=== PATIENT | male | born 1995 | race Caucasian/White ===

== ENCOUNTER 2016-08-16 23:21 | Emergency (ER) | payer OTHER ==
[2016-08-16] MEDS ORDERED: Lidocaine 1% with EPINEPHrine 1:100,000 20 ML MDV ONE (23:32)
[2016-08-16] MEDS ORDERED: Bacitracin/Neomycin/Polymyxin B Oint 0.9 GM U/D Packet ONE (23:55)
--- NOTE | 2016-08-17 00:17 | EDM.PDOC ---
ED HPI Skin/Rash - General Chief Complaint: Laceration Stated Complaint: laceratiohn Time Seen by Provider: 08/16/16 23:35 Source: Reports: Patient History Limitations: Reports: No limitations - History of Present Illness INITIAL COMMENTS - FREE TEXT/NARRATIVE: Jacobo is a 21 yo male who presents to the ER with concerns of a cut to his right hand. States he was working at [employer]. States he was doing the dishes and when he put his hand into the water there was a sharp knife the cut the palm oh his right hand. States he has full movement of his hand. Denies any neuro or sensory deficits. States Tetanus is up to date, last given 1 year ago. 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) - Related Data Allergies Allergy/AdvReac Type Severity Reaction Status Date / Time cephalexin [From Keflex] Allergy Hives Verified 08/16/16 23:27 codeine Allergy Itching Verified 08/16/16 23:26 Home Meds: Ambulatory Orders Medication Instructions Recorded Confirmed Escitalopram [Lexapro] 10 mg PO DAILY 08/16/16 08/16/16 Past Medical History Psychiatric History: Reports: ADHD, Anxiety, Depression - Past Surgical History HEENT Surgical History: Reports: Eye surgery Social & Family History - Tobacco Use Smoking Status *Q: Current Some Day Smoker Years of Tobacco use: 2 Packs/Tins Daily: 0.1 - Caffeine Use Caffeine Use: Reports: None - Recreational Drug Use Recreational Drug Use: No ED ROS GENERAL - Review of Systems Review Of Systems: See Below Skin: Reports: wound (cut to right hand) ED EXAM, SKIN/RASH Exam: See Below Exam Limited By: No limitations General Appearance: alert, no apparent distress Extremities: normal range of motion (in all distal digits), normal capillary refill Neurological: alert, oriented, no motor/sensory deficits Skin: Warm, Dry, Intact, Wound/incision (5cm fairly superficial flap laceration to the palm, base of right hand. Mild bleeding noted) Location, Skin: upper extremity, right Characteristics: linear Associated features: No: warmth, tenderness ED SKIN PROCEDURES - Laceration/Wound Repair Right Proximal Dorsal Hand Lac/wound length in cm: 5 Appearance: subcutaneous, linear, clean Distal NVT: neuro & vascular intact, no tendon injury Anesthetic type: local Local anesthesia - Lidocaine (Xylocaine): 1% with epi Local anesthetic volume: 5cc Skin prep: chlorhexidine (hibiciens) Exploration/Debridement/Repair: wound explored, explored to base, no foreign material found Closed with: sutures Suture size: 4-0 # of sutures: 9 Suture type: prolene, interrupted, simple Sterile dressing applied: nurse Tetanus status addressed: Yes Complications: No Course - Vital Signs Last Recorded V/S: Last Vital Signs Temp 98.1 F 08/16/16 23:21 Pulse 77 08/16/16 23:21 Resp 18 08/16/16 23:21 BP Pulse Ox 96 08/16/16 23:21 - Orders/Labs/Meds Meds: Medications Discontinued Medications Generic Name Dose Route Start Last Admin Trade Name Jelena PRN Reason Stop Dose Admin Lidocaine/Epinephrine Confirm 08/16/16 23:32 Xylocaine 1% With Epinephrine 1:100,000 Administered 08/16/16 23:33 Dose 20 ml .ROUTE .STK-MED ONE Neomycin/Polymyxin/Bacitracin Confirm 08/16/16 23:55 Triple Antibiotic Oint Administered 08/16/16 23:56 Dose 1 each .ROUTE .STK-MED ONE Departure - Departure Time of Disposition: 00:20 Disposition: Home, Self-Care 01 Clinical Impression: Laceration of right hand without complication, excluding fingers Qualifiers: Encounter type: initial encounter Qualified Code(s): S61.411A - Laceration without foreign body of right hand, initial encounter Instructions: Stitches, Paras, or Adhesive Wound Closure, [id number], Laceration Care, Adult, [id number] Forms: ED Department Discharge Additional Instructions: 1) Laceration care handout attached. 2) Watch for signs of infection ( increased redness, warmth, swelling, pus-like drainage, etc...). 3) Recommend taking 500mg of Tylenol with 600mg of Ibuprofen if any discomfort every 6 hours as needed. 4) Keep wound clean and dry for 48 hours. 5) May use triple antibiotic ointment prior to showering as well after 48 hours , water will bead off of wound 6) Return to clinic in 10 days for suture removal, sooner if any concerns. - Problem List & Annotations (1) Laceration of right hand without complication, excluding fingers SNOMED Code(s): 839925399 Code(s): S61.411A - LACERATION WITHOUT FOREIGN BODY OF RIGHT HAND, INIT ENCNTR Status: Acute Current Visit: Yes Qualifiers: Encounter type: initial encounter Qualified Code(s): S61.411A - Laceration without foreign body of right hand, initial encounter - Problem List Review Problem List Initiated/Reviewed/Updated: Yes - Assessment/Plan Plan: See additional instructions.
[2016-08-17] MEDS ORDERED: Bacitracin/Neomycin/Polymyxin B Oint 0.9 GM U/D Packet TOP ONE (00:42)
[2016-08-17] MEDS ORDERED: Lidocaine 1% with EPINEPHrine 1:100,000 20 ML MDV INJECT ONE (00:42)
== END 2016-08-17 00:36 | disposition home or self-care (01) ==
LOC: CC.ED 23:21
DX: S61.411A Laceration without foreign body of right hand, initial encounter (principal); F17.210 Nicotine dependence, cigarettes, uncomplicated; W26.0XXA Contact with knife, initial encounter
CPT/HCPCS: 12002; 99283